=== PATIENT | female | born 1935 | race Caucasian/White ===

== ENCOUNTER → 2025-07-10 | Outpatient (CLI) | payer MEDICARE, SELFPAY ==
--- NOTE | 2025-07-10 13:33 | ECHOD_ITS ---
Reason For Study Reason For Study: Arrhythmia Procedure This was a 2D Doppler, Color Flow transthoracic echocardiogram. Exam performed in department. Left Ventricle Normal LV size. The left ventricular ejection fraction is 40 %. There is mild to moderate global hypokinesis of the left ventricle. Right Ventricle Normal RV size. Normal systolic function. Atria The left atrium is moderately enlarged. Normal right atrium. Mitral Valve Bileaflet diffuse mitral valve thickening. There is moderate mitral annular calcification. Mild (1+) eccentric mitral valve insufficiency. Tricuspid Valve Normal tricuspid valve. Mild-Moderate (1-2+) tricuspid valve insufficiency. Pulmonary artery systolic pressure is 43 mmHg. Aortic Valve Trisinus/trileaflet aortic valve. Mild (1+) aortic valve insufficiency. Pulmonic Valve Normal pulmonic valve. Great Vessels Normal aortic root. The pulmonary artery is normal size. Inferior vena cava collapse with respiration. Pericardium/Pleural No pericardial effusion. MMode/2D Measurements & Calculations LVIDd: 4.5 cm IVSd: 1.4 cm Ao root diam: 3.2 cm LVIDs: 3.3 cm LVPWd: 1.0 cm RVDd: 3.8 cm FS: 25.5 % LAV(MOD-bp): 86.9 ml LVAd ap4: 28.7 cm2 SV(MOD-sp4): 41.0 ml LAV(MOD-bp) Indexed: 62.5 ml/m2 LVLd ap4: 7.6 cm SI(MOD-sp4): 29.5 ml/m2 LAV(MOD-sp2): 71.5 ml EDV(MOD-sp4): 89.8 ml LAV(MOD-sp4): 97.0 ml EDV(sp4-el): 92.2 ml LVAs ap4: 19.1 cm2 LVLs ap4: 6.4 cm ESV(MOD-sp4): 48.8 ml ESV(sp4-el): 48.6 ml EF(MOD-sp4): 45.7 % EF(sp4-el): 47.3 % SV(sp4-el): 43.6 ml LA A4 area: 28.6 cm2 LA dimension(2D): 4.6 cm RA A4 area: 14.1 cm2 TAPSE: 2.2 cm Time Measurements MV dec time: 0.18 sec Doppler Measurements & Calculations MV E max joel: 136.2 cm/sec Lat Peak E' Joel: 7.6 cm/sec Med Peak E' Joel: 4.5 cm/sec MV A max joel: 113.8 cm/sec E/E' lat: 17.9 E/E' med: 30.1 MV E/A: 1.2 MV V2 max: 151.8 cm/sec MV P1/2t max joel: 153.0 cm/sec Ao V2 max: 118.9 cm/sec MV max P.2 mmHg MV P1/2t: 57.5 msec Ao max P.7 mmHg MV V2 mean: 83.8 cm/sec Ao V2 mean: 85.8 cm/sec MV mean P.4 mmHg MV dec slope: 780.0 cm/sec2 Ao mean P.4 mmHg MV V2 VTI: 39.7 cm MVA(P1/2t): 3.8 cm2 Ao V2 VTI: 28.6 cm AV (velocity ratio): 0.63 AI max joel: 492.0 cm/sec LV V1 max: 76.8 cm/sec MR max joel: 448.4 cm/sec AI max P.8 mmHg LV V1 max P.4 mmHg MR max P.4 mmHg LV V1 mean P.3 mmHg AI dec slope: 347.9 cm/sec2 LV V1 mean: 54.8 cm/sec AI P1/2t: 414.2 msec LV V1 VTI: 18.1 cm PA V2 max: 77.9 cm/sec TR max joel: 305.1 cm/sec TR max P.4 mmHg ECHO/Echo Complete Interpretation Summary The left ventricular ejection fraction is 40 %. Normal LV size. There is mild to moderate global hypokinesis of the left ventricle. The left atrium is moderately enlarged. Mild-Moderate (1-2+) tricuspid valve insufficiency. Pulmonary artery systolic pressure is 43 mmHg. Ordering Physician: Daljit Davila Referring Physician: Daljit Davila Performed By: Laron Marrero RCS
== END | disposition home or self-care (01) ==
LOC: CVS 13:33
PROVIDERS: PCP Physician Assistant; Referring Provider Internal Medicine Cardiovascular Disease; Visit Provider Internal Medicine Cardiovascular Disease
DX: I49.3 Ventricular premature depolarization (principal)
CPT/HCPCS: 93306

== ENCOUNTER → 2025-07-22 | Outpatient (CLI) | payer MEDICARE, SELFPAY ==
[2025-07-22 13:31] LABS: Hematocrit 40.5 % (37-47); Hemoglobin 13.2 g/dL (12.0-15.0); Mean Corp Hgb Conc 32.6 g/dL (32-36); Mean Corpuscular Volume 91.0 fL (81-99); Mean Platelet Vol. 10.6 fl (6.2-12.0); Platelet Count 244 K/mm3 (150-450); RBC Distribution Width CV 13.7 % (11.6-14.6); RBC Distribution Width SD 45.7 fl (35.1-43.9); Red Blood Count 4.45 M/mm3 (4.2-5.4); White Blood Count 7.8 K/mm3 (4.4-11.0)
[2025-07-22 14:05] LABS: Pro- Brain NATRIURETIC PEPTIDE 1162 pg/mL (<=1800)
[2025-07-22 14:07] LABS: AST(SGOT) 24 U/L (<=31); Alanine Aminotransfer ALT/SGPT 19 U/L (<=34); Albumin, Serum 3.8 g/dL (3.4-4.8); Alkaline Phosphatase 95 U/L (35-104); Anion Gap 9 (5-15); BUN 23 mg/dL (4-19); BUN/Creat Ratio 42.1 RATIO (10-20); Calcium,Total 8.9 mg/dL (7.6-11.0); Carbon Dioxide 27.1 mmol/L (21.0-32.0); Chloride 107 mmol/L (98-108); Globulin 2.5 g/dL (2.2-4.2); Glucose 92 mg/dL (70-99); Potassium 4.3 mmol/L (3.3-5.1)
== END | disposition home or self-care (01) ==
PROVIDERS: PCP Physician Assistant; Referring Provider Internal Medicine Cardiovascular Disease; Visit Provider Internal Medicine Cardiovascular Disease
DX: R06.09 Other forms of dyspnea (principal); I51.89 Other ill-defined heart diseases; I35.1 Nonrheumatic aortic (valve) insufficiency
CPT/HCPCS: 36415; 80053; 83880; 85027